=== PATIENT | male | born 1975 | race Hispanic/Latino ===

== ENCOUNTER → 2019-06-09 | Outpatient (CLI) | payer OTHER | END | disposition home or self-care (01) | LOC: RAH 10:39 | PROVIDERS: ATTEND Urology | DX: N45.1 Epididymitis (principal); N50.811 Right testicular pain | CPT/HCPCS: 76870 ==

== ENCOUNTER 2019-07-20 08:42 | Emergency (ER) | payer OTHER | END 2019-07-20 09:30 | disposition home or self-care (01) | LOC: EDH 08:42 | DX: R51 Headache (principal); J45.909 Unspecified asthma, uncomplicated; Z89.412 Acquired absence of left great toe | CPT/HCPCS: 96374; 96375 ==

== ENCOUNTER 2020-03-06 00:59 | Inpatient (IN) | payer OTHER, SELFPAY ==
[~2020-03-06] VITALS: Ht 165.1 cm; Wt 83.3 kg
[2020-03-06] MEDS ORDERED: CEFTRIAXONE SODIUM 2 GM VIAL ONE (02:01)
[2020-03-06] MEDS ORDERED: AZITHROMYCIN 500MG+NS 250ML 250 ML IV ONE (02:01)
[2020-03-06] MEDS ORDERED: SODIUM CHLORIDE 0.9% 50 ML IV ONE (02:02)
[2020-03-06] MEDS ORDERED: MAG HYDROX/AL HYDROX/SIMETH ES 30 ML SUSP UDCUP ONE (02:54)
[2020-03-06] MEDS ORDERED: LIDOCAINE HCL 2% VISCOUS 15 ML UDCUP ONE (02:54)
[2020-03-06] MEDS ORDERED: IOHEXOL-350 75 ML VIAL IV ONE (03:00)
[2020-03-06] MEDS ORDERED: ALBUTEROL INHALER 90MCG/INH IH PRN (04:15)
[2020-03-06] MEDS ORDERED: DIPHENHYDRAMINE HCL 25 MG CAPSULE PO PRN (04:15)
[2020-03-06] MEDS ORDERED: METHYLPREDNISOLONE SOD SUCC 125MG/2ML VIAL IV ONE (04:15)
[2020-03-06] MEDS ORDERED: ONDANSETRON HCL 4 MG/2 ML VIAL IV PRN (04:15)
[2020-03-06] MEDS ORDERED: NITROGLYCERIN 0.4 MG SL TAB SL PRN (04:15)
[2020-03-06] MEDS ORDERED: ACETAMINOPHEN 325 MG TAB PO PRN ×2 (04:15)
[2020-03-06] MEDS ORDERED: ZOSYN 3.375GM+NS 50ML 50 ML IV SCH ×2 (05:45→17:00)
[2020-03-06] MEDS ORDERED: DOXYCYCLINE 100MG+NS 250ML 250 ML IV SCH (05:45)
[2020-03-06] MEDS: METHYLPREDNISOLONE SOD SUCC 40MG/ML 1ML IVP SCH ×3 (05:45→20:22)
[2020-03-06 09:00] VITALS: BP 119/75; PULSE 51; RESP 18; TEMP 96.3
[2020-03-06] MEDS: PANTOPRAZOLE SODIUM 40 MG TABLET.DR PO SCH (09:10)
[2020-03-06] MEDS: ENOXAPARIN SODIUM 40 MG/0.4 ML SYRINGE SQ SCH (09:11)
[2020-03-06] MEDS ORDERED: SODIUM CHLORIDE 0.9% 250 ML IV ONE (09:44)
[2020-03-06] MEDS ORDERED: DOXYCYCLINE HYCLATE 100 MG TABLET PO SCH (10:15)
[2020-03-06 12:17] VITALS: BP 119/81; PULSE 67; RESP 18; TEMP 97.5
--- NOTE | 2020-03-06 12:39 | NUR ---
pt admission complete, waited till now to admit because the pt was very drowsy and falling asleep during conversation earlier; i have gotten pt to sign request for medical records form but he states he really see's no md to get records from, he went to dr nyasia perez to get his covid test otherwise he only see's dr andrews river for his allergies; thus i am not sending request for medical records; i have also called pharmacy for the pt's albuterol which has been pending and they stated they will deliver it;
[2020-03-06] MEDS: FLUTICASONE/VILANTEROL 1 EACH AER.POW.BA IH SCH (13:15)
[2020-03-06] MEDS: ALBUTEROL INHALER 90MCG/INH IH SCH ×4 (13:25→22:00)
[2020-03-06] MEDS ORDERED: METHYLPREDNISOLONE SOD SUCC 40MG/ML 1ML IVP SCH (14:00)
--- NOTE | 2020-03-06 15:07 | NUR ---
dr souza ordered a ultra sound of the abdoman and when i called the [facility] they stated they were instructed to perform only test associated with determination of covid necessary; other test not associated with covid dx and if pt is covid positive would be done as an outpatient 2 weeks after pt cleared of covid . i have called dr souza and left a message on his phone stating that the test he ordered is not going to be done.
[2020-03-06 16:30] VITALS: BP 98/51; PULSE 62; RESP 18; TEMP 98.6
[2020-03-06] MEDS: IPRATROPIUM 0.5 MG/2.5 ML INH IH SCH ×2 (18:00→23:52)
[2020-03-06 20:49] VITALS: BP 119/74; PULSE 62; RESP 18; TEMP 98.7
[2020-03-06 23:45] VITALS: BP 107/67; PULSE 52; RESP 18; TEMP 98.4
[2020-03-07] MEDS: ALBUTEROL INHALER 90MCG/INH IH SCH ×5 (02:00→23:01)
[2020-03-07 04:03] VITALS: BP 102/69; PULSE 50; RESP 18; TEMP 98.5
[2020-03-07] MEDS: METHYLPREDNISOLONE SOD SUCC 40MG/ML 1ML IVP SCH ×3 (05:05→20:59)
[2020-03-07] MEDS: IPRATROPIUM 0.5 MG/2.5 ML INH IH SCH ×3 (06:00→18:00)
[2020-03-07] MEDS: PANTOPRAZOLE SODIUM 40 MG TABLET.DR PO SCH (08:06)
[2020-03-07] MEDS: ENOXAPARIN SODIUM 40 MG/0.4 ML SYRINGE SQ SCH (08:07)
[2020-03-07] MEDS: FLUTICASONE/VILANTEROL 1 EACH AER.POW.BA IH SCH (08:07)
[2020-03-07 08:40] VITALS: BP 118/79; PULSE 53; RESP 18; TEMP 97.6
[2020-03-07] MEDS ORDERED: AZITHROMYCIN 500MG+NS 250ML 250 ML IV SCH (09:00)
[2020-03-07] MEDS ORDERED: CEFTRIAXONE SODIUM 1 GM IV SCH (09:00)
[2020-03-07] MEDS ORDERED: SODIUM CHLORIDE 0.9% 250 ML IV ONE (09:46)
[2020-03-07] MEDS ORDERED: GUAIFENESIN-CODEINE 5 ML SYRUP PO PRN (10:00)
[2020-03-07] MEDS ORDERED: CEFTRIAXONE SODIUM 1 GM IVP SCH (10:45)
[2020-03-07] MEDS ORDERED: REMDESIVIR (INVESTIGATIONAL) 200 MG/250 ML NS IV SCH (12:00)
--- NOTE | 2020-03-07 12:10 | NUR ---
RD NOTIFICATION Pt admitted with Severe Sepsis, COVID-19 PNA, Acute Respiratory Failure. Pt with recent 10# wt loss due to course of illness. RD attempted to call Pt d/t isolation protocol - No answer. Pt with previous diarrhea. PO intake at 100% as per EMR. Pt with increased nutrition needs secondary to acute respiratory failure. Recommend Ensure Clear QD Recommend 60mL ProMod BID RD to continue to monitor. Please notify as additional nutrition concerns arise. Thank you. Addendum: 03/07/20 at 1213 [address]I GARCÍA RD RD Amended: Links added.
[2020-03-07 12:27] VITALS: BP 113/65; PULSE 79; RESP 18; TEMP 97.7
--- NOTE | 2020-03-07 15:00 | NUR ---
CONVALESCENT PLASMA FIRST UNIT OF CONVALESCENT PLASMA TRANSFUSION STARTED AT 1203 AND COMPLETED AT 1230, WITHOUT ANY COMPLICATIONS. SECOND UNIT OF CONVALESCENT PLASMA TRANSFUSION BEGAN AT 1415 AND WAS COMPLETED AT 1447, WITHOUT COMPLICATIONS. ALL DOCUMENTATION SIGNED AND SENT TO BLOOD BANK.
[2020-03-07] MEDS: ZOSYN 3.375GM+NS 50ML 50 ML IV SCH ×2 (15:01→22:54)
--- NOTE | 2020-03-07 15:09 | NUR ---
DC PLAN PATIENT LIVES WITH SPOUSE. INDEPENDENT ABLE TO PERFORM ADL'S. PATIENT HAS NO SERVICE OR DME'S. FEELS SAFE TO RETURN HOME. Addendum: 03/07/20 at 1510 by NIDIA ROCHA RN CM Amended: Links added.
--- NOTE | 2020-03-07 15:10 | NUR ---
REMDESIVIR REMDESIVIR INFUSING AT THIS TIME.
[2020-03-07 16:40] VITALS: BP 146/88; PULSE 68; RESP 18; TEMP 98.4
[2020-03-07 19:59] VITALS: BP 131/83; PULSE 65; RESP 19; TEMP 98.6
[2020-03-08] VITALS: BP 133/90; PULSE 60; RESP 19; TEMP 98.5
[2020-03-08] MEDS: ALBUTEROL INHALER 90MCG/INH IH SCH ×3 (02:00→10:36)
[2020-03-08 03:51] VITALS: BP 119/74; PULSE 57; RESP 19; TEMP 98.3
[2020-03-08] MEDS: ZOSYN 3.375GM+NS 50ML 50 ML IV SCH ×3 (05:50→20:34)
[2020-03-08] MEDS: METHYLPREDNISOLONE SOD SUCC 40MG/ML 1ML IVP SCH ×3 (05:50→20:34)
[2020-03-08] MEDS: IPRATROPIUM 0.5 MG/2.5 ML INH IH SCH ×4 (06:00→18:00)
[2020-03-08 08:36] VITALS: BP 126/77; PULSE 64; RESP 18; TEMP 97.8
[2020-03-08] MEDS: PANTOPRAZOLE SODIUM 40 MG TABLET.DR PO SCH (10:35)
[2020-03-08] MEDS: ENOXAPARIN SODIUM 40 MG/0.4 ML SYRINGE SQ SCH (10:35)
[2020-03-08] MEDS: FLUTICASONE/VILANTEROL 1 EACH AER.POW.BA IH SCH (10:36)
[2020-03-08 11:50] VITALS: BP 115/75; PULSE 70; RESP 18; TEMP 97.6
[2020-03-08 17:25] VITALS: BP 116/78; PULSE 75; RESP 18; TEMP 98.9
[2020-03-08 20:00] VITALS: BP 128/84; PULSE 60; RESP 20; TEMP 98.4
[2020-03-09] VITALS: BP 124/76; PULSE 60; RESP 19; TEMP 98.5
[2020-03-09 04:00] VITALS: BP 113/68; PULSE 50; RESP 19; TEMP 97.6
[2020-03-09] MEDS: METHYLPREDNISOLONE SOD SUCC 40MG/ML 1ML IVP SCH ×3 (04:33→20:28)
[2020-03-09] MEDS: ZOSYN 3.375GM+NS 50ML 50 ML IV SCH ×3 (04:33→20:28)
[2020-03-09] MEDS: IPRATROPIUM 0.5 MG/2.5 ML INH IH SCH ×4 (06:00→18:00)
[2020-03-09 08:27] VITALS: BP 130/77; PULSE 50; RESP 18; TEMP 97.5
[2020-03-09] MEDS: PANTOPRAZOLE SODIUM 40 MG TABLET.DR PO SCH (09:42)
[2020-03-09] MEDS: ENOXAPARIN SODIUM 40 MG/0.4 ML SYRINGE SQ SCH (09:43)
[2020-03-09] MEDS: FLUTICASONE/VILANTEROL 1 EACH AER.POW.BA IH SCH (09:43)
[2020-03-09] MEDS: ALBUTEROL INHALER 90MCG/INH IH SCH ×4 (10:10→22:00)
[2020-03-09] MEDS: REMDESIVIR (INVESTIGATIONAL) 100 MG in SODIUM CHLORIDE 0.9% 250 ML IV SCH ×2 (12:00→12:43)
--- NOTE | 2020-03-09 13:10 | NUR ---
RD FOLLOW UP Pt tolerating Regular diet order with no report of GI distress, PO intake at 100%. Recommend modify supplement to Ensure Enlive QD Recommend to add 500mg Vitamin C (BID), 220mg ZnSO4 (QD)/ RD to continue to monitor. Please notify as additional nutrition concerns arise. Thank you.
[2020-03-09 15:46] VITALS: BP 119/69; PULSE 68; RESP 18; TEMP 98.3
[2020-03-09] MEDS ORDERED: TAMSULOSIN HCL 0.4 MG CAP.ER.24H ONE (20:35)
[2020-03-09 21:04] VITALS: BP 126/83; PULSE 73; RESP 18; TEMP 98.1
[2020-03-10] VITALS (8 sets, daily range): BP systolic 96–139; BP diastolic 66–89; PULSE 50–77; RESP 16–20; TEMP 97.7–98.4
[2020-03-10] MEDS: ALBUTEROL INHALER 90MCG/INH IH SCH ×6 (02:00→21:37)
[2020-03-10] MEDS: ZOSYN 3.375GM+NS 50ML 50 ML IV SCH ×3 (05:06→20:59)
[2020-03-10] MEDS: METHYLPREDNISOLONE SOD SUCC 40MG/ML 1ML IVP SCH (05:06)
[2020-03-10] MEDS: IPRATROPIUM 0.5 MG/2.5 ML INH IH SCH ×4 (06:00→17:03)
[2020-03-10] MEDS: PANTOPRAZOLE SODIUM 40 MG TABLET.DR PO SCH (08:23)
[2020-03-10] MEDS: ENOXAPARIN SODIUM 40 MG/0.4 ML SYRINGE SQ SCH ×2 (08:24→20:59)
[2020-03-10] MEDS: TAMSULOSIN HCL 0.4 MG CAP.ER.24H PO SCH ×2 (08:33→20:59)
[2020-03-10] MEDS: FLUTICASONE/VILANTEROL 1 EACH AER.POW.BA IH SCH (08:33)
[2020-03-10] MEDS: REMDESIVIR (INVESTIGATIONAL) 100 MG in SODIUM CHLORIDE 0.9% 250 ML IV SCH (12:50)
[2020-03-10] MEDS ORDERED: METHYLPREDNISOLONE SOD SUCC 40MG/ML 1ML IVP SCH (17:45)
[2020-03-10] MEDS ORDERED: IBUPROFEN 600 MG TABLET ONE (22:24)
[2020-03-10] MEDS ORDERED: IBUPROFEN 600 MG TABLET PO SCH (22:30)
[2020-03-10] MEDS ORDERED: KETOROLAC TROMETHAMINE 15MG/ML IV PRN (22:30)
[2020-03-11 01:12] VITALS: BP 121/66; PULSE 64; RESP 20; TEMP 98
[2020-03-11] MEDS: ALBUTEROL INHALER 90MCG/INH IH SCH ×4 (02:00→14:49)
[2020-03-11] MEDS: ZOSYN 3.375GM+NS 50ML 50 ML IV SCH (04:45)
[2020-03-11 05:06] VITALS: BP 129/83; PULSE 50; RESP 20; TEMP 97.9
[2020-03-11] MEDS: IPRATROPIUM 0.5 MG/2.5 ML INH IH SCH ×3 (06:00→12:00)
[2020-03-11 08:00] VITALS: BP 123/85; PULSE 58; RESP 18; TEMP 97.9
[2020-03-11] MEDS: ENOXAPARIN SODIUM 40 MG/0.4 ML SYRINGE SQ SCH (08:36)
[2020-03-11] MEDS: PANTOPRAZOLE SODIUM 40 MG TABLET.DR PO SCH (08:36)
[2020-03-11] MEDS: FLUTICASONE/VILANTEROL 1 EACH AER.POW.BA IH SCH (08:57)
[2020-03-11] MEDS ORDERED: METHYLPREDNISOLONE 4 MG TABLET PO SCH (09:00)
[2020-03-11 11:43] VITALS: BP 100/61; PULSE 81; RESP 18; TEMP 97.7
[2020-03-11] MEDS: REMDESIVIR (INVESTIGATIONAL) 100 MG in SODIUM CHLORIDE 0.9% 250 ML IV SCH (12:20)
--- NOTE | 2020-03-11 14:50 | NUR ---
Provided pt with discharge instructions. Educated on discharge prescriptions. 2 prescriptions sent to pharmacy and 2 prescriptions printed. Pt. Verbalized understanding. Educated to quarantine x14 days upon return home and to wear mask at all times around others. Provided education handouts on covid, sob, pneumonia. No s/s of distress noted. Pt ask for 6 minute walk test and second dose of lovenox prior to discharge and waiting on MD to respond. Will discharge pt when transportation arrive.
[2020-03-11] MEDS ORDERED: ENOXAPARIN SODIUM 40 MG/0.4 ML SYRINGE SQ SCH (15:01)
--- NOTE | 2020-03-11 15:23 | NUR ---
Per pt request MD ordered 1x lovenox prior to d/c home as well as 6 minute walk test. RT at bedside. Pt will be discharged after oxgyen evaluation.
[2020-03-11 15:26] VITALS: PULSE 102; PULSE 116; PULSE 122; RESP 18; RESP 20; RESP 26
--- NOTE | 2020-03-11 15:34 | NUR ---
IV removed. 6 minute walk test completed by Pt. transported downstair via wheelchair. All belongings with pt. No s/s of distress noted upon exit.
== END 2020-03-11 15:40 | disposition home or self-care (01) | DRG 177 ==
LOC: EDH 00:59 → EDHIP 01:00 → 2DH 08:56
PROVIDERS: ADMIT Hospitalist; ATTEND Hospitalist
PROC: 30233K1 Transfusion of Nonautologous Frozen Plasma into Peripheral Vein, Percutaneous Approach (ICD-10-PCS; principal; 2020-03-06)
DX: U07.1 COVID-19 (principal); A41.9 Sepsis, unspecified organism; J12.89 Other viral pneumonia; J96.21 Acute and chronic respiratory failure with hypoxia; R65.20 Severe sepsis without septic shock; B17.9 Acute viral hepatitis, unspecified; E87.3 Alkalosis; J45.901 Unspecified asthma with (acute) exacerbation; Y95 Nosocomial condition; E66.9 Obesity, unspecified; R53.81 Other malaise; Z68.30 Body mass index [BMI] 30.0-30.9, adult; Z89.422 Acquired absence of other left toe(s); Z82.3 Family history of stroke; Z80.9 Family history of malignant neoplasm, unspecified

== ENCOUNTER 2020-04-12 09:56 | Emergency (ER) | payer BC, SELFPAY ==
[~2020-04-12 09:56] MED LIST: FLUT1AER IH; TIOT18CA3 IH
[2020-04-12] MEDS ORDERED: ONDANSETRON HCL 4 MG/2 ML VIAL ONE ×2 (09:59→12:12)
[2020-04-12] MEDS ORDERED: MORPHINE SULFATE 4 MG/1ML SYG ONE (09:59)
[2020-04-12] MEDS ORDERED: IOHEXOL-350 75 ML VIAL IV ONE (10:10)
[2020-04-12] MEDS ORDERED: KETOROLAC TROMETHAMINE 30MG/ML ONE (10:13)
[2020-04-12 10:23] LABS: BASOPHILS % (AUTO) 0.3 % (0.0-5.0); EOSINOPHILS % (AUTO) 0.3 % (0.0-8.0); LYMPHOCYTES % (AUTO) 11.7 % (21.0-51.0); MEAN CORPUSCULAR HEMOGLOBIN 29.3 pg (27.0-33.0); MEAN CORPUSCULAR VOLUME 86.2 fL (79-99); MONOCYTES % (AUTO) 2.8 % (3.0-13.0); NEUTROPHILS % (AUTO) 83.9 % (40.0-77.0); PLATELET COUNT (AUTO) 252 K/uL (130-400); RED BLOOD CELL COUNT(AUTO) 4.99 MIL/uL (4.50-6.20); RED CELL DISTRIBUTION WIDTH 13.5 % (11.0-15.5); WHITE BLOOD COUNT (AUTO) 8.7 K/uL (4.8-10.8)
[2020-04-12 10:38] LABS: CREATININE 0.9 mg/dL (0.5-1.5); POTASSIUM 4.1 mmol/L (3.5-5.1)
[2020-04-12] MEDS ORDERED: FENTANYL CITRATE PF 50 MCG/1 ML 2ML VIAL ONE ×2 (10:40→12:12)
[2020-04-12 10:46] LABS: APPEARANCE,URINE Clear (CLEAR); BILIRUBIN,URINE Negative (NEGATIVE); COLOR,URINE Yellow (YELLOW); GLUCOSE, URINE (UA) Negative (NEGATIVE); KETONES,URINE Negative (NEGATIVE); LEUKOCYTE ESTERASE ,URINE Negative (NEGATIVE); NITRATE,URINE Negative (NEGATIVE); OCCULT BLOOD,URINE Negative (NEGATIVE); PROTEIN,URINE Negative (NEGATIVE)
[2020-04-12 10:47] LABS: ALBUMIN 3.9 g/dL (3.5-5.0); BILIRUBIN,DIRECT 0.1 mg/dL (0.0-0.3); BILIRUBIN,TOTAL 0.8 mg/dL (0.2-1.0); INR 0.9 (0.85-1.15); PARTIAL THROMBOPLASTIN TIME 26.2 SEC (26.3-35.5); PROTHROMBIN TIME 9.8 SEC (9.6-11.6); TOTAL PROTEIN, SERUM 7.4 g/dL (6.0-8.3)
[2020-04-12] MEDS ORDERED: TAMSULOSIN HCL 0.4 MG CAP.ER.24H ONE (11:36)
[2020-04-12] MEDS ORDERED: LIDOCAINE 2G/250ML 250 ML IV SCH (13:15)
[2020-04-12] MEDS ORDERED: SODIUM CHLORIDE 0.9% IV SCH (14:30)
[2020-04-12] MEDS ORDERED: LIDOCAINE HCL 1% IV SCH (14:30)
[2020-04-17] MEDS ORDERED: AUGMENTIN PO (10:40)
[2020-04-17] MEDS ORDERED: TAMS-1 PO (10:40)
== END 2020-04-12 15:28 | disposition home or self-care (01) ==
LOC: EDH 09:56
DX: N23 Unspecified renal colic (principal); J45.909 Unspecified asthma, uncomplicated
CPT/HCPCS: 36415; 74177; 80048; 80076; 81003; 83605; 83690; 84484; 85025; 85610; 85730; 93005; 96361; 96374; 96375; 96376; 99285; J1885; J2270; J2405 ×2; J3010 ×2; Q9967

== ENCOUNTER 2020-04-17 09:15 | Observation (INO) | payer BC ==
[~2020-04-17] VITALS: Ht 165.1 cm; Wt 82.6 kg
[2020-04-17] VITALS (28 sets, daily range): BP systolic 104–143; BP diastolic 57–88
[2020-04-17] MEDS ORDERED: LACTATED RINGERS 1000ML 1,000 ML IV ONE (10:22)
[2020-04-17] MEDS ORDERED: TAMS-1 PO ×2 (10:40)
[2020-04-17] MEDS ORDERED: AUGMENTIN PO ×2 (10:40)
[2020-04-17] MEDS ORDERED: MIDAZOLAM HCL 1 MG/ML 2ML VIAL ONE (10:50)
[2020-04-17] MEDS: CEFAZOLIN SODIUM 1 GM VIAL ONE ×2 (11:05→12:47)
[2020-04-17] MEDS ORDERED: LIDOCAINE PF 2% 5ML ABBOJECT ONE (12:17)
[2020-04-17] MEDS ORDERED: PROPOFOL 10 MG/ML 20ML VIAL IV ONE (12:18)
[2020-04-17] MEDS ORDERED: FENTANYL CITRATE PF 50 MCG/1 ML 2ML VIAL ONE (12:18)
[2020-04-17] MEDS ORDERED: ONDANSETRON HCL 4 MG/2 ML VIAL ONE (12:18)
[2020-04-17] MEDS ORDERED: SUCCINYLCHOLINE 200MG/10ML SYR ONE (12:18)
[2020-04-17] MEDS ORDERED: IOHEXOL-350 50ML VIAL IV ONE (12:36)
[2020-04-17] MEDS ORDERED: ROCURONIUM 10MG/1ML SYR 10 MG/ML ML ONE (12:41)
[2020-04-17] MEDS ORDERED: KETOROLAC TROMETHAMINE 30MG/ML ONE (13:20)
[2020-04-17] MEDS ORDERED: MEPERIDINE-PF 25 MG/ML SYG ONE (13:31)
[2020-04-17] MEDS ORDERED: SODIUM CHLORIDE 0.9% 1000ML 1,000 ML IV SCH (14:30)
--- NOTE | 2020-04-17 15:20 | NUR ---
Pt received from PACU; awake and alert but drowsy. Denies any pain; oro in place 14fr. No urine in bag noted but urine in tubing noted clear, pink tinge. Pt c/o soreness to upper lip. Noted slight swelling to middle section of lip but intact. Anesthesia (ROHAN Tate) made aware and here to evaluate patient. Order received for [place]. Applied after meal
[2020-04-17] MEDS ORDERED: TRIAMCINOLONE ACETONIDE 0.1% CREAM 15GM TP SCH (15:30)
--- NOTE | 2020-04-17 18:30 | NUR ---
Dr. Pallavi Olivo came in to evaluate patient. Made him aware of lip discomfort and treatment ordered. Urine continues clear but pink tinge. Dr. Olivo ordered to irrigate bladder with 200cc of sterile water to promote pt to void. Klein was then removed and pt voided appx 200cc of pink tinge urine. Dr. Olivo was present. Post op instructions were given to pt and . Verbalized understanding. Copy of prescription was given to patient.
== END 2020-04-17 18:30 | disposition home or self-care (01) ==
LOC: EEVIPCON 09:15 → DAH 09:15 → DAHIP 13:50 → DAH 13:50 → EDHIP 13:50 → UNDOADMOB 13:50
PROVIDERS: ADMIT Urology; ATTEND Urology
DX: N20.0 Calculus of kidney (principal); J45.909 Unspecified asthma, uncomplicated; Z87.442 Personal history of urinary calculi; Z86.19 Personal history of other infectious and parasitic diseases
CPT/HCPCS: 52005; 74420; 96360; 96361; A4354; A4358; A4649; A5113; C1726; C1758 ×2; C1769; C2617; G0378 ×5; J0330; J0690; J1885; J2001; J2175; J2250; J2405; J2704; J3010; J7120; Q9967

== ENCOUNTER → 2020-04-20 | Outpatient (CLI) | payer BC ==
[~2020-04-20] MED LIST changes: +AUGMENTIN PO; +TAMS-1 PO
== END | disposition home or self-care (01) ==
LOC: RAH 13:35
PROVIDERS: ATTEND Urology
DX: N20.0 Calculus of kidney (principal); Z96.0 Presence of urogenital implants
CPT/HCPCS: 74176